=== PATIENT | female | born 1935 | race Caucasian/White ===

== ENCOUNTER 2021-08-07 01:22 | Emergency (ER) | payer MEDICARE, OTHER ==
[~2021-08-07] VITALS: Ht 167.6 cm; Wt 49.6 kg
[~2021-08-07 01:22] MED LIST: DIPH25CA83 PO; LEVO88TA2 PO
[2021-08-07 01:30] VITALS: BP 157/71
[2021-08-07 02:58] LABS: CLARITY,URINE CLOUDY (Clear); COLOR,URINE BROWN (Yellow); GLUCOSE, URINE NEGATIVE (Neg); KETONES,URINE TRACE mg/dl (Neg); LEUKOCYTE ESTERASE ,URINE SMALL (Neg); NITRITES, URINE NEGATIVE (Neg); OCCULT BLOOD,URINE MODERATE (Neg); PH,URINE 6.5 (4.8-8.0); PROTEIN,URINE 100 mg/dl (Neg); UROBILINOGEN,URINE 0.2 E.U/dL (0.2-1.0)
[2021-08-07 03:05] LABS: UA COLLECTION TYPE CLN CATCH MIDSTREAM
[2021-08-07 03:24] LABS: BACTERIA,URINE FEW /HPF (Neg); MUCUS STRANDS NONE SEEN /LPF (Neg); RBC,URINE 50-100 /HPF (0-2); SQUAMOUS EPITHELIAL CELL,UR FEW /LPF (FEW); WBC,URINE 50-100 /HPF (0-4)
[2021-08-07] MEDS ORDERED: cephalexin 500mg capsule PO ONE (03:45)
[2021-08-07] MEDS ORDERED: CEPH250T PO (05:03)
== END 2021-08-07 05:21 | disposition home or self-care (01) ==
LOC: ER 01:23
DX: N39.0 Urinary tract infection, site not specified (principal); R31.9 Hematuria, unspecified; Z90.49 Acquired absence of other specified parts of digestive tract; Z98.890 Other specified postprocedural states; Z88.2 Allergy status to sulfonamides; Z79.2 Long term (current) use of antibiotics; Z79.899 Other long term (current) drug therapy
CPT/HCPCS: 74176; 81001; 87077; 87088; 99284